=== PATIENT | male | born 1975 | race Hispanic/Latino ===

== ENCOUNTER 2018-02-24 10:33 | Day surgery (SDC) | payer BC ==
[2018-02-16 09:06] VITALS: BMI 38.0
[2018-02-24] MEDS ORDERED: Propofol 10 mg/ml Inj (20 ML) ONE (11:52)
[2018-02-24] MEDS ORDERED: Sodium Chloride 0.9% 1,000 ML IV SCH (12:30)
[2018-02-24 14:47] VITALS: RESP 18; TEMP 98.6
[2018-02-24 14:48] VITALS: BP 147/96; PULSE 94; O2SAT 94
== END 2018-02-24 13:46 | disposition home or self-care (01) ==
LOC: ENDO 10:33
PROVIDERS: ATTEND Internal Medicine Gastroenterology
DX: K21.9 Gastro-esophageal reflux disease without esophagitis (principal); K29.50 Unspecified chronic gastritis without bleeding; K44.9 Diaphragmatic hernia without obstruction or gangrene
CPT/HCPCS: 43239; 88305; 88312; 88342; J2001; J2704; J7040 ×2